=== PATIENT | female | born 1950 | race Caucasian/White ===

== ENCOUNTER 2018-11-19 01:17 | Outpatient (CLI) | payer MEDICARE, OTHER, SELFPAY ==
[2018-11-19 08:17] LABS: Anion Gap 8.8 mmol/L (3-11); BUN 16 mg/dL (7-18); CO2 27.2 mmol/L (21.0-32.0); CREATININE 0.92 mg/dL (0.55-1.02); Calcium 8.8 mg/dL (8.5-10.1); Calculated LDL 168 mg/dL; Chloride 105 mmol/L (98-107); Cholesterol 244 mg/dL (50-200); Glucose 90 mg/dL (70-100); HDL Cholesterol 58 mg/dL (40-60); Potassium 4.9 mmol/L (3.5-5.1); Sodium 141 mmol/L (136-145); Triglyceride 90 mg/dL (30-150)
== END 2018-11-19 01:37 ==
PROVIDERS: PCP Nurse Practitioner Family; Visit Provider Nurse Practitioner Family
DX: E78.5 Hyperlipidemia, unspecified (principal); Z13.1 Encounter for screening for diabetes mellitus
CPT/HCPCS: 36415; 80048; 80061; 83721

== ENCOUNTER 2018-11-29 01:07 | Outpatient (CLI) | payer MEDICARE, OTHER, SELFPAY ==
--- NOTE | 2018-11-29 12:30 | DI.MAMMO_ITS ---
SYMPTOMS/DIAGNOSIS: SCREENING, Z12.31 MAMMOGRAMS: Mammograms were interpreted according to the usual protocol including computer analysis with CAD system, tomosynthesis and C view imaging. Comparison is with the prior examinations. No suspicious masses or microcalcifications are seen. There is no definite evidence of malignancy. IMPRESSION: Negative mammogram. Routine screening is recommended. Category 1, breast density B. MQSA ASSESSMENT OF FINDINGS: Negative. Category 1. Patient will receive a letter notifying them of these results. BI-RADS category B. There are scattered areas of fibroglandular density.
== END 2018-11-29 01:27 ==
PROVIDERS: PCP Nurse Practitioner Family; Visit Provider Nurse Practitioner Family
DX: Z12.31 Encounter for screening mammogram for malignant neoplasm of breast (principal)
CPT/HCPCS: 77063; 77067

== ENCOUNTER 2019-12-10 04:53 | Outpatient (CLI) | payer MEDICARE, OTHER, SELFPAY ==
[2019-12-10 08:16] LABS: Anion Gap 3.6 mmol/L (3-11); BUN 19 mg/dL (7-18); CO2 31.4 mmol/L (21.0-32.0); CREATININE 0.94 mg/dL (0.55-1.02); Calculated LDL 157 mg/dL (<100); Chloride 108 mmol/L (98-107); Cholesterol 245 mg/dL (<200); Estimated GFR 59.22 (mL/min/1.73m2); Glucose 95 mg/dL (74-106); HDL Cholesterol 60 mg/dL (40-60); Potassium 4.7 mmol/L (3.5-5.1); Sodium 143 mmol/L (136-145); Triglyceride 141 mg/dL (<150)
== END 2019-12-10 05:13 ==
PROVIDERS: PCP Nurse Practitioner Family; Visit Provider Nurse Practitioner Family
DX: E78.5 Hyperlipidemia, unspecified (principal); Z13.1 Encounter for screening for diabetes mellitus
CPT/HCPCS: 36415; 80048; 80061

== ENCOUNTER 2019-12-26 01:19 | Outpatient (CLI) | payer MEDICARE, OTHER, SELFPAY ==
--- NOTE | 2019-12-26 07:00 | DI.MAMMO_ITS ---
EXAM: MAMMO SCREENING CLINICAL HISTORY: screening,Z12.39 TECHNIQUE: Mammograms were interpreted according to the usual protocol including computer analysis w [employer] CAD system, tomosynthesis and C-view imaging. COMPARISON: FINDINGS: The breasts are moderate density with fairly symmetrical distribution of fibroglandular tissue. No d ominant mass or clumped microcalcification is identified in either breast. Current examination is co mpared with previous examinations including November 2018 and there has been no gross interval change i n appearance in comparison with prior studies. IMPRESSION: No specific evidence of malignancy at this time. Routine screening examinations are suggested at yea rly intervals due to the family history of breast carcinoma. BI-RADS Cat 1 - Negative Breast Density - Category B - Scattered areas of fibroglandular density
== END 2019-12-26 01:39 ==
PROVIDERS: PCP Nurse Practitioner Family; Visit Provider Nurse Practitioner Family
DX: Z12.31 Encounter for screening mammogram for malignant neoplasm of breast (principal); Z80.3 Family history of malignant neoplasm of breast
CPT/HCPCS: 77063; 77067

== ENCOUNTER 2021-02-15 03:56 | Outpatient (CLI) | payer MEDICARE, OTHER, SELFPAY ==
[2021-02-15 10:34] LABS: Anion Gap 7.4 mmol/L (3-11); BUN 19 mg/dL (7-18); CO2 30.6 mmol/L (21.0-32.0); CREATININE 0.9 mg/dL (0.55-1.02); Calcium 9.4 mg/dL (8.5-10.1); Calculated LDL 157 mg/dL (<100); Chloride 105 mmol/L (98-107); Cholesterol 241 mg/dL (<200); Glucose 82 mg/dL (74-106); HDL Cholesterol 65 mg/dL (40-60); Potassium 4.8 mmol/L (3.5-5.1); Sodium 143 mmol/L (136-145); Triglyceride 96 mg/dL (<150)
== END 2021-02-15 03:57 | disposition home or self-care (01) ==
LOC: LBO 03:57
PROVIDERS: PCP Nurse Practitioner Family; Visit Provider Nurse Practitioner Family
DX: E78.5 Hyperlipidemia, unspecified (principal); Z13.1 Encounter for screening for diabetes mellitus
CPT/HCPCS: 36415; 80048; 80061

== ENCOUNTER → 2021-02-18 10:39 | Outpatient (BNVA) | payer MEDICARE, OTHER, SELFPAY | PROVIDERS: PCP Nurse Practitioner Family; Referring Provider Nurse Practitioner Family; Visit Provider Physical Therapy Assistant | DX: Z12.11 Encounter for screening for malignant neoplasm of colon (principal); Z86.010 Personal history of colon polyps; Z80.0 Family history of malignant neoplasm of digestive organs ==

== ENCOUNTER 2021-02-26 02:33 | Outpatient (CLI) | payer MEDICARE, OTHER, SELFPAY ==
[2021-02-26 12:04] LABS: Source Nasal/Nares
[2021-02-26 15:27] LABS: COVID-19 PCR Negative (Negative)
== END 2021-02-26 02:34 | disposition home or self-care (01) ==
LOC: LBO 02:33
PROVIDERS: PCP Nurse Practitioner Family; Visit Provider Surgery
DX: Z20.822 Contact with and (suspected) exposure to COVID-19 (principal); Z01.818 Encounter for other preprocedural examination
CPT/HCPCS: 87635

== ENCOUNTER 2021-03-01 07:46 | Day surgery (SDC) | payer MEDICARE, OTHER, SELFPAY ==
--- NOTE | 2021-02-28 14:48 | W.ANESPRE ---
General Info Date of Service Date Performed: 03/01/21 Height: 5 ft 1.5 in Weight: 55.905 kg Body Mass Index (BMI): 22.8 Surgical Procedure: Operation Date: 03/01/21 09:35 Proposed Procedures Side Surgeon p Colonoscopy Lara Akins MD Meds Allergies and Home Medications Home Medication Medication Instructions Recorded Tumeric Supplements 1,000 mg PO DAILY 02/29/16 vitamin B complex [B-Complex] 1 ea PO .QWEEKLY 03/10/17 naproxen sodium [Aleve] 220 mg PO PRN PRN 05/05/17 olopatadine 0.2 % eye drops 1 drp OP DAILY PRN 11/26/18 garlic 50 mg PO .qd 02/04/21 triamcinolone acetonide 0.5 % 1 applic TOPICAL .BID-QID #15 g 02/04/21 topical cream bisacodyl 5 mg tablet,delayed 5 mg PO ONCE #4 tab 02/18/21 release polyethylene glycol 3350 17 17 g PO ONCE #238 g 02/18/21 gram/dose oral powder Current Visit Medications: Current Medications Generic Name Dose Route Start Last Admin Trade Name Freq PRN Reason Stop Dose Admin Ringer's Solution 1,000 mls @ 80 mls/hr 03/01/21 06:00 IV 03/28/21 23:59 INFUSION ALISHA IV Miscellaneous Supplies 1 each 03/01/21 06:00 Iv Access IV 03/28/21 23:59 DIRECTED ALISHA Sodium Chloride 0 ml 03/01/21 06:00 Normal Saline Flush 10 Ml Syr IV 03/28/21 23:59 PRN PRN Sodium Chloride 0 ml 03/01/21 06:00 Normal Saline 10 Ml Vial IJ 03/28/21 23:59 DIRECTED PRN Sterile Water 0 ml 03/01/21 06:00 Water,Injection,Sterile 10 Ml Vial IJ 03/28/21 23:59 DIRECTED PRN PFSH Active Problems Active Problems: Problem Status Onset Code Osteoporosis 11/09/12 M81.0 Hyperlipidemia 03/04/16 E78.5 Elevated blood pressure reading in office without diagnosis of hypertension R03.0 Screening for colon cancer Z12.11 Medical History Active Problem List Osteoporosis (Chronic 11/09/12) Hyperlipidemia (Chronic 03/04/16) Elevated blood pressure reading in office without diagnosis of hypertension (Acute) Screening for colon cancer (Acute) Medical History Nephrolithiasis 1970s Polyp of colon (05/15/17) 05/09/2017 colonoscopy: sessile serrated adenoma Surgical History Surgical History Colonoscopy - IV Sedation 2006 Colonoscopy - MAC (05/09/17) History of orthopedic surgery Tobacco Smoking/Tobacco Use Status: Never Passive smoking exposure: No Alcohol Alcohol Intake: current Alcohol intake frequency: 0-2 drinks per day Alcohol type: wine Substance Use Substance use: Never Substance use type: does not use Vital Signs and Lab Results Vital Signs Most Recent Vital Signs in EMR: Temp Pulse Resp BP Pulse Ox 36.7 C 66 16 163/61 H 98 03/01/21 08:03 03/01/21 08:03 03/01/21 08:03 03/01/21 08:03 03/01/21 08:03 Lab Results Blood Type / Crossmatch: No Data to Display Complete Blood Count: No Data to Display Complete Metabolic Panel: Sodium Level 143 mmol/L (136-145) 02/15/21 07:55 02/15/21 Potassium Level 4.8 mmol/L (3.5-5.1) 02/15/21 07:55 02/15/21 Chloride Level 105 mmol/L (98-107) 02/15/21 07:55 02/15/21 Carbon Dioxide Level 30.6 mmol/L (21.0-32.0) 02/15/21 07:55 02/15/21 Blood Urea Nitrogen 19 mg/dL (7-18) H 02/15/21 07:55 02/15/21 Creatinine 0.9 mg/dL (0.55-1.02) 02/15/21 07:55 02/15/21 Estimated GFR/1.73 m2 >= 60.00 (mL/min/1.73m2) 02/15/21 07:55 02/15/21 Calcium Level 9.4 mg/dL (8.5-10.1) 02/15/21 07:55 02/15/21 Glucose Level 82 mg/dL (74-106) 02/15/21 07:55 02/15/21 Liver Function Panel: No Data to Display Coagulation Panel: No Data to Display Cardiac Panel: No Data to Display Arterial Blood Gas: No Data to Display Venous Blood Gas: No Data to Display Pancreas Panel: No Data to Display Thyroid Panel: No Data to Display Infectious Disease: Coronavirus (COVID-19)(PCR) Negative (Negative) 02/26/21 10:46 02/26/21 Coronavirus 2019 Source Nasal/Nares 02/26/21 10:46 02/26/21 Blood Cultures: No Data to Display Toxicology Panel: No Data to Display Anesthesia Assessment and Plan Anesthesia History Personal History: No History of Anesthesia Complications Family History: No Family History of Anesthesia Complications Exercise Tolerance Exercise Tolerance: Metabolic Equivalents>4 Cardiac & Pulmonary Exam Cardiac Exam: Normal S1/S2 Heart Sounds Pulmonary Exam: Clear Bilateral Breath Sounds Implantable Cardiac Device Does patient have a Pacemaker or an ICD?: No Airway Exam Known Difficult Airway: No Mallampati Class: 2 Mouth Opening: Normal (> 3cm) Thyromental Distance: Greater than 3 cm Neck Range of Motion: Full ROM Neck Circumference: Normal Teeth Condition: Normal Dentition ASA Classification ASA Score: ASA 2 Emergency Case?: No NPO Status NPO Status: NPO Clears >2 hours, Solids >8 hours Anesthesia Plan Resuscitation Status: Full Code Anesthesia Technique: General Anesthesia Airway Planned: Natural Airway Monitors Used: Standard Monitors Preoperative Comments:: 70 yo female with family history of colon cancer for colo. Sig PMHx: denies significant. Previous Anes: colo in 2018 without issues.
--- NOTE | 2021-03-01 06:34 | W.COLOREPORT ---
Colonoscopy Report Date of procedure: 03/01/21 Pre-op diagnosis general: Hx of colon polyps and Family history of colon cancer Post-op diagnosis procedure note: same (and mild divetriculosis) Procedure: Colonoscopy with polypectomy Surgeon: Lara Akins Anesthesia Type: General:No Airway (Ricky Blair, JUSTA) Estimated blood loss (mL): 3 Pathology: other (cecal polyp and descending polyp) Complications: None Disposition: same day Indications: The patient is here for Colonoscopy pre-op. Her last screening was in 2018 and was remarkable for sessile serrated polyps. She has a family history of colon cancer in her mother at the age of 75. She has not had any bowel habit changes. -Discussed colonoscopy bowel prep as well as the procedure. Discussed possible complications of the procedure to include bleeding, pain, perforation, missed small lesion/polyp, sore throat, aspiration and adverse reaction to the medications. Questions were answered to patient?s satisfaction. No guarantees were implied or given. Prep: Miralax/Dulcolax Procedure Start Time: 09:23 Procedure End Time: 09:49 Retraction Time: 14 minutes Findings: 2 small polyps mild diverticulosis Procedure Description: After informed consent was obtained the patient was taken to the procedure room and placed in a left decubitous position. Monitors were applied and a time out was done. The patients name, date of , procedure, allergies to medications and metal in their body was reviewed. The patient was then sedated. Once sedated and comfortable a rectal exam was done. External exam was normal. Internal exam revealed a normal sphincter tone and no palpable masses. The scope was then introduced and retro-flexed. No internal hemorrhoids, polyps or masses were identified on retro-flexion. The scope was then advanced to the cecum with some difficulty. The ileocecal vlave and appendiceal orifice were identified. The prep was good. The scope was then slowly retracted over 14 minutes back into the rectum. Polyps were removed with cold forceps in the cecum and descending colon. Both polyps were <10 mm in size. There was mild sigmoid diverticulosis noted. The scope was removed and the patient was woken up and taken back to Same day surgery in stable condition. The patient tolerated the procedure well and there were no immediate complications. Follow up: The patient should follow up in 3-5 years unless they develop changes in bowel habits or other new gastrointestinal complaints.
--- NOTE | 2021-03-01 06:35 | W.PM.DSUDISC ---
Discharge Plan Disposition Patient Disposition: HOME Condition: Stable Discharge Details Reason For Visit: Colonoscopy Attending Provider: Lara Akins Primary Care Provider: Daniella Lara Home Meds and New Rx's Prescriptions: Continued olopatadine 0.2 % drops 1 drp OP DAILY PRNRF: 0 garlic 50 mg PO .qd RF: 0 triamcinolone acetonide 0.5 % cream 1 applic topical .BID-QID Qty: 15 RF: 0 tumeric supplements 1,000 mg PO DAILY RF: 0 vitamin B complex [B-Complex] 1 EACH tablet 1 ea PO .QWEEKLY RF: 0 naproxen sodium [Aleve] 220 MG capsule 220 mg PO PRN PRNRF: 0 Discontinued bisacodyl [Dulcolax (bisacodyl)] 5 mg tablet,delayed release (DR/EC) 5 mg PO ONCE Qty: 4 RF: 0 polyethylene glycol 3350 17 gram/dose powder 17 g PO ONCE Qty: 238 RF: 0 Discharge Instructions Instructions: Colorectal Polyps (DC), Diverticulosis (DC) Additional Instructions: Findings: sigmoid diverticulosis 2 polyps Follow up: 3-5 years Please call if you develop: fevers >101.5 Nausea or Vomiting Abdominal pain that is not transient Rectal bleeding that is more then a tbsp A hard abdomen and inability to pass gas DAY SURGERY UNIT POST ENDOSCOPY INSTRUCTIONS Instructions for everyone who is given Anesthesia: For your safety, please do the following for the next 24 Hours: a. Do not drive or operate dangerous equipment b. Do not drink alcohol beverages or use any recreational drugs for the first 24 hours or while taking pain medications. The medications in your body may have a reaction that can be dangerous. c. Do not make any important decisions or sign any important papers 1. Generally there are no restrictions on your activity after a day or so has gone by, but you may feel a bit fatigued for a few days. 2. After you arrive home you may have a light meal and return to a normal diet as you can tolerate it without feeling sick to your stomach. 3. After surgery, you may feel pain or discomfort. This should be only transient, but if it persists please contact your doctor. 4. If there are any questions regarding the findings of your procedure, please feel free to contact your doctor. 6. If you are unable to contact your doctor with a problem, contact the hospital at [phone]. 8. Continue all your regular medications unless directed otherwise. I understand the above instructions and have no questions. Signature of Patient or Responsible Adult Escort Date/Time Name of Responsible Adult Escort Signature of Nurse Date/Time Activity:: Activity as Tolerated Diet:: high fiber diet Discharge Orders Discharge Orders: Discharge Order (Routine); Ordered 03/01/21 Ordered By: Lara Akins
[2021-03-01 08:03] VITALS: BP 163/61; PULSE 66; RESP 16; TEMP 36.7; O2SAT 98
[2021-03-01] MEDS: Lactated Ringers 1,000 ML 80 ML IV (08:34)
[2021-03-01 09:05] VITALS: BMI 22.8
--- NOTE | 2021-03-01 09:32 | BOWEL_PTH ---
PATIENT: Cynthia Fuentes LOC: [facility] U#:[id number] AGE/SX: 70/F ROOM: RE03/01/[address]: Lara Akins MD : [id number] BED: DIS: 03/01/2021 SPEC #: [id number] RECD: 03/01/21 12:57 STATUS: CIELO REQ #: [id number] JUAN RAMON: 03/01/21 09:[address]: Lara Akins DEPT: Surgical Specimen RECD BY: Geeta Valadez ENTERED: 03/01/21 12:59 SP TYPE: Bowel OTHR DR: Daniella Lara, RHONDA Tissues: 1 - BIOPSY BOWEL 2 - BIOPSY BOWEL Procedures: GROSS AND MICRO LEVEL 4 Comments: [id number]
[2021-03-01 10:02] VITALS: BP 102/85; PULSE 63; RESP 20; TEMP 36.3; O2SAT 100
--- NOTE | 2021-03-01 10:13 | W.ANESPOSTOP ---
Postoperative Evaluation Date, Time and Location Date Performed: 03/01/21 Time Performed: 10:00 Patient Location: Day Surgery Unit Vital Signs Most Recent Imported Vital Signs: Most Recent Vital Signs Temp Pulse Resp BP Pulse Ox 36.3 C L 63 20 102/85 100 03/01/21 10:02 03/01/21 10:02 03/01/21 10:02 03/01/21 10:02 03/01/21 10:02 Pain Score Most Recent Pain Score: Most Recent Pain Score Pain Level 0 03/01/21 10:02 Assessment Mental Status: Awake (Alert & Oriented to Patient Baseline) Airway and Respiratory Function: Patent airway with normal (patient baseline) respiratory exam Cardiovascular Function: Hemodynamically Stable Hydration Status: Adequately Hydrated Nausea & Vomiting: No Nausea or Vomiting Pain: Pt. Denies Any Pain Peripheral Nerve Block: Patient did not receive a nerve block
[2021-03-01 10:26] VITALS: BP 157/66; PULSE 56; RESP 18; TEMP 36.3; O2SAT 98
== END 2021-03-01 11:01 | disposition home or self-care (01) ==
LOC: SUR 07:46
PROVIDERS: PCP Nurse Practitioner Family; Visit Provider Surgery
PROC: 0DJD8ZZ Inspection of Lower Intestinal Tract, Via Natural or Artificial Opening Endoscopic (ICD-10-PCS; CPT 45378; principal; 2021-03-01 09:30)
DX: Z12.11 Encounter for screening for malignant neoplasm of colon (principal); Z80.0 Family history of malignant neoplasm of digestive organs; Z86.010 Personal history of colon polyps; D12.0 Benign neoplasm of cecum; K57.30 Diverticulosis of large intestine without perforation or abscess without bleeding; D12.4 Benign neoplasm of descending colon
CPT/HCPCS: 45380; 88305

== ENCOUNTER 2021-03-03 01:54 | Outpatient (CLI) | payer MEDICARE, OTHER, SELFPAY ==
--- NOTE | 2021-03-03 07:15 | DI.MAMMO_ITS ---
Exam(s) MAMMO SCREENING EXAM: MAMMO SCREENING CLINICAL HISTORY: screening,Z12.39 TECHNIQUE: Mammograms were interpreted according to the usual protocol including computer analysis w [employer] CAD system, tomosynthesis and C-view imaging. COMPARISON: FINDINGS: The breasts are of moderate density with fairly symmetrical distribution of fibroglandular tissue. N o dominant mass or clumped microcalcification is identified in either breast. The current examinatio n is compared with previous examinations including December 2019 and there has been no gross interva l change in appearance in comparison with the prior studies. IMPRESSION: No specific evidence of malignancy at this time. Routine screening examinations are suggested at yea rly intervals due to the family history of breast carcinoma. BI-RADS Category 1 - Negative Breast Density - Category B - Scattered areas of fibroglandular density
== END 2021-03-03 02:14 ==
PROVIDERS: PCP Nurse Practitioner Family; Visit Provider Nurse Practitioner Family
DX: Z12.31 Encounter for screening mammogram for malignant neoplasm of breast (principal); Z80.3 Family history of malignant neoplasm of breast
CPT/HCPCS: 77063; 77067

== ENCOUNTER 2022-02-23 03:16 | Outpatient (CLI) | payer MEDICARE, OTHER, SELFPAY ==
[2022-02-23 09:49] LABS: Anion Gap 3.2 mmol/L (3-11); BUN 22 mg/dL (7-18); CO2 31.8 mmol/L (21.0-32.0); CREATININE 0.9 mg/dL (0.55-1.02); Calcium 9.4 mg/dL (8.5-10.1); Calculated LDL 161 mg/dL (<100); Chloride 104 mmol/L (98-107); Cholesterol 256 mg/dL (<200); Estimated GFR 68.77 (mL/min/1.73m2); Glucose 105 mg/dL (74-106); HDL Cholesterol 72 mg/dL (40-60); Potassium 4.7 mmol/L (3.5-5.1); Sodium 139 mmol/L (136-145); Triglyceride 116 mg/dL (<150)
== END 2022-02-23 03:17 | disposition home or self-care (01) ==
LOC: LBO 03:17
PROVIDERS: PCP Nurse Practitioner Family; Visit Provider Nurse Practitioner Family
DX: E78.5 Hyperlipidemia, unspecified (principal); R03.0 Elevated blood-pressure reading, without diagnosis of hypertension; R79.89 Other specified abnormal findings of blood chemistry
CPT/HCPCS: 36415; 80048; 80061

== ENCOUNTER 2022-03-01 02:59 | Outpatient (CLI) | payer MEDICARE, OTHER, SELFPAY | END 2022-03-01 03:00 | disposition home or self-care (01) | PROVIDERS: PCP Nurse Practitioner Family; Visit Provider Nurse Practitioner Family | DX: E78.5 Hyperlipidemia, unspecified (principal); Z13.1 Encounter for screening for diabetes mellitus; Z91.89 Other specified personal risk factors, not elsewhere classified; M81.0 Age-related osteoporosis without current pathological fracture | CPT/HCPCS: 36415; 80048; 80061; 86141 ==

== ENCOUNTER 2022-08-03 02:12 | Outpatient (CLI) | payer MEDICARE, SELFPAY ==
--- NOTE | 2022-08-03 06:30 | DI.MAMMO_ITS ---
Exam(s) MAMMO SCREENING EXAM: MAMMO SCREENING CLINICAL HISTORY: screening,z12.39 TECHNIQUE: Mammograms were interpreted according to the usual protocol including computer analysis w [employer] CAD system, tomosynthesis and C-view imaging. COMPARISON: 2012 - 2020 FINDINGS: The breasts are composed of scattered fibroglandular densities, Breast Density category B. No suspicious masses or suspicious microcalcifications are seen. No skin thickening or abnormal axillary lymph nodes are seen. There has been no significant change from prior exams. IMPRESSION: BI-RADS Category 1, Negative mammogram Yearly screening mammography is recommended. Breast Density - Category B, scattered fibroglandular densities. A negative radiographic report should not delay biopsy if a dominant or clinically suspicious mass is present. Up to ten percent of cancers are not identified on mammography. A negative report may reinforce clinical impression. Adenosis and dense breasts may obscure an underlying neoplasm. False positive reports average 6 to 10%. Patient will receive a letter notifying them of these results.
== END 2022-08-03 02:32 ==
PROVIDERS: PCP Nurse Practitioner Family; Visit Provider Nurse Practitioner Family
DX: Z12.31 Encounter for screening mammogram for malignant neoplasm of breast (principal)
CPT/HCPCS: 77063; 77067

== ENCOUNTER 2023-07-24 05:57 | Outpatient (CLI) | payer MEDICARE, SELFPAY ==
[2023-07-24 08:02] LABS: Anion Gap 7.7 mmol/L (3-11); BUN 20 mg/dL (7-18); CO2 29.3 mmol/L (21.0-32.0); Calcium 9.7 mg/dL (8.5-10.1); Calculated LDL 179 mg/dL (<100); Chloride 105 mmol/L (98-107); Cholesterol 270 mg/dL (<200); Estimated GFR 59.86 (mL/min/1.73m2); Glucose 98 mg/dL (74-106); HDL Cholesterol 72 mg/dL (40-60); Potassium 4.8 mmol/L (3.5-5.1); Sodium 142 mmol/L (136-145); Triglyceride 99 mg/dL (<150)
== END 2023-07-24 05:58 | disposition home or self-care (01) ==
LOC: LBO 05:57
PROVIDERS: Absent Provider Nurse Practitioner Family; PCP Nurse Practitioner Family; Visit Provider Nurse Practitioner Family
DX: E78.5 Hyperlipidemia, unspecified (principal); R79.89 Other specified abnormal findings of blood chemistry
CPT/HCPCS: 36415; 80048; 80061

== ENCOUNTER → 2023-08-25 00:03 | Outpatient (CLI) | payer MEDICARE, SELFPAY ==
--- NOTE | 2023-08-25 08:00 | DI.DEXA_ITS ---
Exam(s) XR DEXA BONE DENSITY W/WO FIDENCIO EXAM: XR DEXA BONE DENSITY W/WO FIDENCIO CLINICAL HISTORY: reassess osetoporosis (last in 2012),m81.0 TECHNIQUE: COMPARISON: DX DEXA BONE DENSITY WITH FIDENCIO from 02/28/2013 FINDINGS: Lateral Spine Image: Unremarkable. No compression deformities identified. Left hip: Total T-Score: -2.3. This compares to -1.7 on the prior examination. Total Z-Score: -0.7 T- and Z-scores: Findings are consistent with osteopenia. There is osteoporosis in the femoral neck with a T-score of -2.7. Lumbar Spine: Total T-Score: -3.1. This compares to -3.2 on the prior examination. Total Z-Score: -0.9 T- and Z-scores: Findings are consistent with osteoporosis. IMPRESSION: Osteoporosis in the lumbar spine and femoral neck.
--- NOTE | 2023-08-25 08:00 | DI.MAMMO_ITS ---
Exam(s) MAMMO SCREENING EXAM: MAMMO SCREENING CLINICAL HISTORY: screening,z12.39 TECHNIQUE: Bilateral full field digital CC and MLO mammographic images were obtained with 3D tomosyn thesis and utilizing computer aided detection (CAD). COMPARISON: Available for comparison. FINDINGS: Masses/Architectural Distortion: None seen. Microcalcifications: No suspicious pleomorphic-type are seen. Skin Thickening/Nipple Retraction: None. IMPRESSION: 1. No significant interval change with no specific features of malignancy noted. 2. Unless there is more urgent need, screening mammography is recommended, as per [employer] guidelines. BI-RADS Category 1 - Negative Breast Density - Category B - Scattered areas of fibroglandular density Breast density category C or D implies that the patient has dense breast tissue. Dense breast tissue is very common and is not abnormal but dense breast tissue can make it harder to find cancer on a ma mmogram. Also, dense breast tissue may increase their breast cancer risk. This information about the result of the mammogram report was provided to the patient to raise their awareness. Use this report when you speak with the patient about their risks for breast cancer, which includes their family hist ory. At that time, you may recommend for more screening tests (Ultrasound or MRI) as they might be us eful based on their risk. A negative radiographic report should not delay biopsy if a dominant or clinically suspicious mass is present. Up to ten percent of cancers are not identified on mammography. A negative report may reinforce clinical impression. Adenosis and dense breasts may obscure an underlying neoplasm. False positive reports average 6 to 10%. Patient will receive a letter notifying them of these results.
== END ==
PROVIDERS: PCP Nurse Practitioner Family; Visit Provider Nurse Practitioner Adult Health
DX: M81.0 Age-related osteoporosis without current pathological fracture (principal); Z12.31 Encounter for screening mammogram for malignant neoplasm of breast; Z13.820 Encounter for screening for osteoporosis
CPT/HCPCS: 77063; 77067; 77080

== ENCOUNTER 2025-01-08 03:18 | Outpatient (CLI) | payer MEDICARE, SELFPAY ==
--- NOTE | 2025-01-08 08:09 | DI.MAMMO_ITS ---
Exam(s) MAMMO SCREENING EXAM: MAMMO SCREENING CLINICAL HISTORY: screening,Z12.39 TECHNIQUE: Mammograms were interpreted according to the usual protocol including computer analysis with CAD system, tomosynthesis and C-view imaging. COMPARISON: 2015 through 2023 FINDINGS: The breasts are composed of scattered fibroglandular densities, Breast Density category B. No suspicious masses or suspicious microcalcifications are seen. No skin thickening or abnormal axillary lymph nodes are seen. There has been no significant change from prior exams. IMPRESSION: BI-RADS Category 1, Negative mammogram Yearly screening mammography is recommended. Breast Density - Category B - There are scattered areas of fibroglandular density. Breast density Category C or D implies that the patient has dense breast tissue. Dense breast tissue can make it harder to find cancer on a mammogram. Dense breast tissue is also associated with an increased risk of breast cancer. This information about the result of the mammogram report was provided to the patient to raise their awareness. Use this report when you speak with the patient about their risks for breast cancer, which includes their family history. At that time, you may recommend additional screening tests (Ultrasound or MRI) as these tests may add significant information. A negative radiographic report should not delay biopsy if a dominant or clinically suspicious mass is present. Up to ten percent of cancers are not identified on mammography. A negative report may reinforce clinical impression. Adenosis and dense breasts may obscure an underlying neoplasm. False positive reports average 6 to 10%. Patient will receive a letter notifying them of these results.
== END 2025-01-08 03:38 ==
LOC: DI 03:18
PROVIDERS: PCP Nurse Practitioner Adult Health; Visit Provider Nurse Practitioner Adult Health
DX: Z12.31 Encounter for screening mammogram for malignant neoplasm of breast (principal); R92.323 Mammographic fibroglandular density, bilateral breasts
CPT/HCPCS: 77063; 77067